=== PATIENT | male | born 1990 | race Caucasian/White ===

== ENCOUNTER 2016-11-17 22:23 | Emergency (ER) | payer MEDICAID, OTHER ==
[2016-11-18] MEDS ORDERED: NORMAL SALINE 1000 ML 1,000 ML IV ONE ×2 (00:13)
--- NOTE | 2016-11-18 00:14 | ER Document Report ---
ED General - General Chief Complaint: Possible allergic reaction Stated Complaint: RASH,DIFFICULTY BREATHING Time Seen by Provider: 11/18/16 00:02 Notes: Patient is a 26-year-old male that comes emergency department for chief complaint of a rash on his chest, face, and back and also feeling short of breath and winded. Patient states he was out in the sun for several hours, states that after he went inside he started to feel like he was burning, states that he started to have these symptoms and became concerned. He states he is not feeling short of breath now. He denies that the rash is painful, denies itching, denies headache, denies chest pain, denies any other symptoms. He smokes. He denies any daily medications or any medical history. TRAVEL OUTSIDE OF THE [place] IN LAST 30 DAYS: No Past Medical History - General Information source: Patient - Social History Smoking Status: Current Every Day Smoker Smoking Education Provided: Yes - <3 min Frequency of alcohol use: None Drug Abuse: None Lives with: Family Family History: Reviewed & Not Pertinent - Medical History Medical History: Negative Renal/ Medical History: Denies: Hx Peritoneal Dialysis Surgical Hx: Negative - Immunizations Immunizations up to date: Yes Hx Diphtheria, Pertussis, Tetanus Vaccination: Yes Review of Systems - Review of Systems Constitutional: See HPI EENT: No symptoms reported Cardiovascular: No symptoms reported Respiratory: See HPI Gastrointestinal: No symptoms reported Genitourinary: No symptoms reported Male Genitourinary: No symptoms reported Musculoskeletal: No symptoms reported Skin: See HPI Hematologic/Lymphatic: No symptoms reported Neurological/Psychological: No symptoms reported Physical Exam - Vital signs Vitals: Temp Pulse BP Pulse Ox 98.2 F 109 H 119/66 98 11/17/16 23:09 11/17/16 23:09 11/17/16 23:09 11/17/16 23:09 Interpretation: Normal - General General appearance: Alert, Anxious In distress: None - HEENT Head: Normocephalic, Atraumatic Eyes: Normal Pupils: PERRL - Respiratory Respiratory status: No respiratory distress Chest status: Nontender Breath sounds: Normal. No: Decreased air movement, Wheezing Chest palpation: Normal - Cardiovascular Rhythm: Regular, Tachycardia Heart sounds: Normal auscultation, S1 appreciated, S2 appreciated Murmur: No - Abdominal Inspection: Normal Distension: No distension Bowel sounds: Normal Tenderness: Nontender. No: Tender, Guarding Organomegaly: No organomegaly - Back Back: Normal, Nontender. No: Tender - Extremities General upper extremity: Normal inspection, Nontender, Normal ROM, Normal strength General lower extremity: Normal inspection, Nontender, Normal ROM, Normal strength - Neurological Neuro grossly intact: Yes Cognition: Normal Orientation: AAOx4 [place] Coma Scale Eye Opening: Spontaneous [place] Coma Scale Verbal: Oriented Renan Coma Scale Motor: Obeys Commands Renan Coma Scale Total: 15 Speech: Normal Motor strength normal: LUE, RUE, LLE, RLE Sensory: Normal - Psychological Associated symptoms: Normal affect, Normal mood - Skin Skin Temperature: Warm Skin Moisture: Dry Skin Color: Normal Location of irregularity: Other - There is an erythematous rash consistent with a sunburn over the anterior chest, back, and neck. Also slightly on the face. No vesicles, urticaria, bulla, induration, fluctuance Course - Re-evaluation Re-evalutation: Patient with a flushing rash which actually appears to be a sunburn over his chest, neck, and back. No blistering, no urticaria, normal pharyngeal exam, normal lung exam. Chest x-ray is unremarkable. Patient given IV fluids, Toradol, after this he states symptoms have resolved. Tachycardia resolved. Chemistries unremarkable. Providing with treatment instructions, follow-up instructions, return precautions. Patient states understanding and agreement. - Vital Signs Vital signs: Temp Pulse Resp BP Pulse Ox 98.2 F 65 16 116/67 95 11/18/16 02:18 11/18/16 02:18 11/18/16 02:18 11/18/16 02:18 11/18/16 02:18 - Laboratory Result Diagrams: 11/18/16 00:35 Laboratory results interpreted by me: 11/18/16 00:35 Sodium 147.2 H Chloride 108 H Discharge - Discharge Clinical Impression: Rash, Shortness of breath, Dehydration Condition: Stable Disposition: HOME, SELF-CARE Additional Instructions: X-ray and lab chemistry shows no concerning abnormality. Examination is consistent with sun poisoning/heat rash. Take the prescribed medication, drink plenty of fluids, apply moisturizing cream such as aloe vera or lidocaine with Solarcaine. Follow-up with primary care. Return to emergency department for concerning symptoms. Prescriptions: Naproxen 500 mg PO BID #20 tablet
[2016-11-18 01:05] LABS: ANION GAP 16 (5-19); BLOOD UREA NITROGEN 14 mg/dL (7-20); CALCIUM 9.4 mg/dL (8.4-10.2); CARBON DIOXIDE 23 mmol/L (22-30); CHLORIDE 108 mmol/L (98-107); GLUCOSE 87 mg/dL (75-110); POTASSIUM 4.1 mmol/L (3.6-5.0); SODIUM 147.2 mmol/L (137-145)
[2016-11-18] MEDS ORDERED: KETOROLAC TROMETHAMINE INJ/PF 30 MG/1 ML SDV IV ONE (01:18)
[2016-11-18 02:22] VITALS: BP 116/67
== END 2016-11-18 02:25 | disposition home or self-care (01) ==
LOC: ER 22:23
DX: R21 Rash and other nonspecific skin eruption (principal); R06.02 Shortness of breath; R23.2 Flushing; E86.0 Dehydration; F17.200 Nicotine dependence, unspecified, uncomplicated; Z71.6 Tobacco abuse counseling; R00.0 Tachycardia, unspecified
CPT/HCPCS: 99283; 96361; 96374; 36415; 80048; 71020; J1885; J7030